=== PATIENT | female | born 1955 | race Caucasian/White ===

== ENCOUNTER 2023-01-19 19:29 | Inpatient (IN) | payer MEDICARE, OTHER ==
[~2023-01-19] VITALS: Ht 162.6 cm; Wt 162.5 kg
[2023-01-19 20:04] LABS: BASOPHILS ABSOLUTE AUTO 0.01 K/mm3 (0.00-0.23); BASOPHILS PERCENT AUTO 0 % (0-2); EOSINOPHILS ABSOLUTE AUTO 0.09 K/mm3 (0.00-0.68); EOSINOPHILS PERCENT AUTO 2 % (0-6); Hematocrit 38.5 % (33.0-51.0); Hemoglobin 12.8 g/dL (11.5-16.0); IMMATURE GRAN ABSOLUTE AUTO 0.01 K/mm3 (0.00-0.10); IMMATURE GRAN PERCENT AUTO 0 % (0-1); LYMPHOCYTES ABSOLUTE AUTO 1.52 K/mm3 (0.84-5.20); LYMPHOCYTES PERCENT AUTO 32 % (21-46); MONOCYTES ABSOLUTE AUTO 0.27 K/mm3 (0.16-1.47); MONOCYTES PERCENT AUTO 6 % (4-13); Mean Corpuscular HGB 33.2 pg (26.0-34.0); Mean Corpuscular HGB Conc 33.2 g/dL (31.5-36.5); Mean Corpuscular Volume 100 fL (80-100); Mean Platelet Volume 10.3 fL (9.1-12.4); NEUTROPHILS ABSOLUTE AUTO 2.83 K/mm3 (1.96-9.15); NEUTROPHILS PERCENT AUTO 60 % (41-73); Platelet Count 201 K/mm3 (150-400); RDW Coefficient Variation 13.3 % (11.7-14.2); RDW Standard Deviation 48.7 fL (35.1-46.3); Red Blood Cell Count 3.86 M/mm3 (3.80-5.20); White Blood Cell Count 4.73 K/mm3 (4.00-11.30)
[2023-01-19 20:28] LABS: Albumin, Blood 3.4 g/dL (3.4-5.0); Albumin/Globulin Ratio 0.9 (0.8-1.8); Bilirubin, Total 0.8 mg/dL (0.1-1.0); Calcium, Blood 9.2 mg/dL (8.5-10.1); Globulin, Blood 3.6 g/dL (2.2-4.0); Potassium, Blood 4.1 mmol/L (3.5-5.5)
[2023-01-19 21:13] LABS: Magnesium, Blood 1.9 mg/dL (1.6-2.4)
[2023-01-20] VITALS (9 sets, daily range): BP systolic 105–140; BP diastolic 61–101
[2023-01-20] MEDS ORDERED: METO100ER PO (00:25)
[2023-01-20] MEDS ORDERED: XARELTO20 MG PO (00:25)
[2023-01-20] MEDS ORDERED: LOSA50 PO (00:27)
--- NOTE | 2023-01-20 01:12 | NUR ---
RECEIVED REPORT FROM CARMELA BESS IN ED. PT ABLE TO STAND AND PIVOT TO BED FROM [facility]. REPORTS BEING WC BOUND AT HOME. SISTER AMBAR ATTENDING PT TO ROOM. PT A&OX4. ABLE OT FOLLOE DIRECTIONS AND MAKE NEEDS KNOWN. DENIES ANY SOB OR CHEST PAIN AT THIS TIME. DILT GTT INFUSING AT 5 MG/HR DUE TO HR UP INTO 130'S AT TIME, SUSTAINING IN 110'S. O2 SATS > 92% ON RA. ORIENTED TO ROOM AND CALL LIGHT. PUREWICK IN PLACE FOR PT COMFORT. DENIES NEEDS AT THIS TIME.
--- NOTE | 2023-01-20 03:19 | NUR ---
PT STANDING AND PIVOT TO BSC WITH MINIMAL ASSIST TO VOID. HR ELEVATED TO 130'S WHEN UP, DECREASES TO 110'S AFTER RETURNING TO BED. CALL LIGHT IN REACH.
[2023-01-20 04:28] LABS: BASOPHILS ABSOLUTE AUTO 0.01 K/mm3 (0.00-0.23); BASOPHILS PERCENT AUTO 0 % (0-2); EOSINOPHILS PERCENT AUTO 2 % (0-6); Hematocrit 36.5 % (33.0-51.0); Hemoglobin 12.2 g/dL (11.5-16.0); IMMATURE GRAN ABSOLUTE AUTO 0.02 K/mm3 (0.00-0.10); IMMATURE GRAN PERCENT AUTO 0 % (0-1); LYMPHOCYTES ABSOLUTE AUTO 1.42 K/mm3 (0.84-5.20); LYMPHOCYTES PERCENT AUTO 30 % (21-46); MONOCYTES ABSOLUTE AUTO 0.36 K/mm3 (0.16-1.47); MONOCYTES PERCENT AUTO 8 % (4-13); Mean Corpuscular HGB 33.4 pg (26.0-34.0); Mean Corpuscular HGB Conc 33.4 g/dL (31.5-36.5); Mean Corpuscular Volume 100 fL (80-100); Mean Platelet Volume 10.4 fL (9.1-12.4); NEUTROPHILS ABSOLUTE AUTO 2.85 K/mm3 (1.96-9.15); NEUTROPHILS PERCENT AUTO 60 % (41-73); Platelet Count 186 K/mm3 (150-400); RDW Coefficient Variation 13.2 % (11.7-14.2); RDW Standard Deviation 48.6 fL (35.1-46.3); Red Blood Cell Count 3.65 M/mm3 (3.80-5.20); White Blood Cell Count 4.76 K/mm3 (4.00-11.30)
[2023-01-20 05:03] LABS: Albumin, Blood 3.4 g/dL (3.4-5.0); Bilirubin, Total 1.4 mg/dL (0.1-1.0); Bun/Creatinine Ratio 10.8 (12.0-20.0); Calcium, Blood 9.2 mg/dL (8.5-10.1); Creatinine, Blood 1.02 mg/dL (0.40-1.00); Globulin, Blood 3.3 g/dL (2.2-4.0); Potassium, Blood 3.6 mmol/L (3.5-5.5); Thyroid Stimulating Hormone 8.42 uIU/mL (0.360-4.800); Total Protein, Blood 6.7 g/dL (6.4-8.2)
--- NOTE | 2023-01-20 06:02 | NUR ---
HR CONTINUES IN THE LOW 100'S-110'S WHEN AT REST, INCREASED TO 150'S WHEN AMBULATING. DILT GTT INFUSING AT 10MG/HR. CONTINUES TO DENY ANY CHEST PAIN/PRESSURE. VOIDING LARGE AMOUNTS OF CLEAR, YELLOW URINE. CALL LIGHT IN REACH.
--- NOTE | 2023-01-20 14:29 | NUR ---
ASSUMED CARE OF PT AT 0700 THIS AM. CARDIZEM GTT DC'D PER MD ORDERS AND METOPROLOL PUSH X 1 GIVEN FOR HR>120. PT APPEARS TO BE SLEEPING DEEPLY IN THE AFTERNOON AND SPO2 IS NOTED TO DROP INTO THE 70s BRIEFLY AND PERIODICALLY IN CONJUNCTION WITH AN ELEVATED HR 130-140s FOR A FEW SECONDS. PT APPEARS TO HAVE PERIODS OF APNEA WHILE SLEEPING THAT CORRESPOND TO THESE EVENTS. PT STATES SHE HAS NEVER BEEN DIAGNOSED W SLEEP APEA. PT PLACED ON 2L O2 WHILE SLEEPING TO MAINTAIN SPO2. CALL LIGHT IN REACH, WILL CONTINUE TO MONITOR.
--- NOTE | 2023-01-20 15:27 | NUR ---
DR ROBERSON NOTIFIED OF PT'S HR CONTINUING TO BE 120-140s WHILE AWAKE AND SUSPECTED SLEEP APNEA. YNES ROBERSON STATES SHE WILL PLACE ORDERS. WILL CONTINUE TO MONITOR.
--- NOTE | 2023-01-20 17:53 | NUR ---
SHIFT SUMMARY METOPROLOL SUCC CHANGED TO TARTRATE FOR BETTER RATE CONTROL BY DR ROBERSON, FIRST DOSE GIVEN THIS EVENING ORDERED. CARDIZEM GTT REMAINS OFF AND HR CONTINUES TO BE 120-130s POST METOPROLOL DOSE. SEE DOCUMENTED VS AND ASSESSMENT. NO OTHER ACUTE CHANGES. PT STATES HER BREATHING CONTINUES TO IMPROVE. PT IS ABLE TO USE CALL LIGHT FOR NEEDS, CALL LIGHT IN REACH, WILL CONTINUE TO MONITOR AND GIVE REPORT TO NOC SHIFT RN.
[2023-01-21] VITALS (23 sets, daily range): BP systolic 91–138; BP diastolic 44–106
[2023-01-21 00:58] LABS: Albumin, Blood 3.4 g/dL (3.4-5.0); Anion Gap 7 mmol/L (6-16); Blood Urea Nitrogen 14 mg/dL (8-24); Bun/Creatinine Ratio 12.5 (12.0-20.0); CO2, Blood 35 mmol/L (21-32); Calcium, Blood 9.3 mg/dL (8.5-10.1); Chloride, Blood 99 mmol/L (98-108); Creatinine, Blood 1.12 mg/dL (0.40-1.00); Glomerular Filtration Rate 54 (60-); Glucose, Blood 102 mg/dL (70-99); Phosphorus, Blood 5.5 mg/dL (2.5-4.9); Potassium, Blood 3.5 mmol/L (3.5-5.5); Sodium, Blood 141 mmol/L (136-145)
--- NOTE | 2023-01-21 05:31 | NUR ---
SHIFT SUMMARY PT A&Ox4, CALLS AND COMMUNCIATES NEEDS APPROPRIATLEY. BP STABLE, AFIB 100-130's, MEDICATED PER EMAR, DENIES CP/PRESSURE. SpO2> 92% 2L VIA NC, DENIES SOB. PT REPORTS INCONTINENCE AT TIMES, REQUESTED PUREWICK TO BE PLACED. PT 1 PERSON-SBA TO BSC FOR BMs, NO BM THIS SHIFT, DENIED BOWEL CARE. NO OTHER EVENTS, WILL REPORT TO ONCOMING RN.
--- NOTE | 2023-01-21 12:51 | NUR ---
pt update PT A&OX4. SP02>90% ON RA. TELE AFIB, HR CURRENTLY 140'S. PURWIK TO LIS W/ CLEAR YELLOW URINE. PT AMBULATING TO BATHROOM W/ SBA AND FWW/GB. DENIES PAIN. FRIEND IN ROOM THIS MORNING TO VISIT. MD HENDRICKS IN ROOM TO ASSESS PT, CONSULTED MD BRAVO FOR AFIB RVR, HR 140'S. MD BRAVO IN ROOM TO ASSESS PT. MD BRAVO W/ ORDERS FOR SOTALOL AND DIGOXIN, SEE EMAR. MD BRAVO W/ ORDERS FOR CARDIOVERT THIS EVENING IF NEEDED, PLACED PT ON NPO STATUS. MD BRAVO ALSO W/ ORDERS FOR CORVERT. PT NEEDING TO XFER TO ICU TO BE GIVEN CORVERT PER HOSPITAL POLICY. WILL GIVE REPORT TO CONTRACTS MANAGER.
--- NOTE | 2023-01-21 14:09 | NUR ---
PT IS STARTED ON IBUTILIDE, 1 VIAL OVER 10 MINUTES. PT IS TOLERATING WELL. VSS.
--- NOTE | 2023-01-21 16:12 | NUR ---
BRANDON IS STARTING TO HAVE MORE FREQUENT RUNS OF V-TACH, C/O "NOT FEELING WELL" BUT IT ISN'T NAUSEATED. CALL TO WITH UPDATE, ORDERS RECEIVED, HOLD DIG FOR NOW, EKG TRYING TO CAPTURE THE "RUNS OF VTACH". PT LOOKS MORE TIRED, NOT JOVIAL AND ENGAGING.
--- NOTE | 2023-01-21 17:05 | NUR ---
PT SITTING IN BED AFTER BEING UP TO THE C AND BACK TO BED, WATCHING MONITOR AND PT CONVERTS TO SINUS BRADYCARDIA. UPON ASSESSMENT, PT STATES THAT SHE FEELS "GOOD". PT STATES HER NORMAL RATE IS IN THE 60S. SHE CONTINUES TO HAVE ABERRANT BEATS. HER RATE IS CONTINUING TO RUN BELOW 56.
--- NOTE | 2023-01-21 17:45 | NUR ---
BRANDON WAS TALKING TO THIS RN AND THE MAGNESIUM PB WAS BEING INITIATED, THAT WAS ORDERED BY . PT HAD JUST CONVERTED TO SINUS SAMUEL ABOUT 1650. IT WAS NOTED THAT PT WAS IN VTACH/VFIB. PADS WERE PLACED AND AND DR. SIMMONS CAME IN THE ROOM. PT WAS THEN NOTED TO BE IN TORSADES DE POINT, RATE 245 MAGNESIUM PUSH GIVEN BY ORDER OF AT 1725 AND THE IVPB WAS INCREASED TO 100ML/HR. PT WAS VERY TOLERANT THROUGHOUT THESE EPISODES, SHE WAS AWARE ALMOST THE ENTIRE TIME, TOTAL EPISODES IN TORSADES WAS 3. PT LOST CONSCIOUSNESS ONLY FOR A BRIEF FEW SECONDS, OTHERWISE WAS DOING TOLD WITH TAKING DEEP BREATHS AND ATTEMPTING TO BEAR DOWN. SHE HAD SOME PANIC EPISODES DURING, WHICH WAS EXPECTED. SHE IS CURRENTLY "CHATTING WITH STAFF" AND WAS JUST VISITED BY .
--- NOTE | 2023-01-21 18:39 | NUR ---
END OF SHIFT SUMMARY: NEURO: A&OX4. PATIENT IS ABLE TO MOVE ALL EXTREMITIES AND REPOSITION SELF IN BED. PERRLA. RESP: LUNG SOUNDS CLEAR THROUGHOUT. PT PUT ON 2L NC AROUND 1800 AFTER CARDIAC EPISODE. MAINTAINING AN O2 SAT AT 99% CARDIAC: PT HAS BEEN HAVING SEVERAL RUNS OF VTACH THROUGHOUT THE SHIFT. AROUND 1700 PT BECAME BRADICARDIC AND THE HAD A LONG RUN OF VTACH. CRASH CART WAS BROUGHT INTO THE ROOM AND HOOKED UP TO THE ZOLL. PT CAME OUT OF VTACH ON HER OWN. THIS SAME EPISODE HAPPENED 3 MORE TIMES. PT REMAINED BRADYCARDIC. WAS AT [facility] AND GAVE ORDERS. PT WAS AWAKE AND AWARE OF WHAT WAS GOING ON DURING WHOLE EVENT. PT HAS SINCE BEEN HAVING ECTOPY AND GOING IN AND OUT OF SEVERAL DIFFERENT RHYTHMS. GI: NO BM TODAY : PT IS HOOKED UP TO [email or web address]. SKIN: NO NEW SKIN BREAKDOWN. LINES: 20G IV RFA, 20G IV RAC
--- NOTE | 2023-01-21 20:00 | NUR ---
ASSUMPTION OF CARE NOTE PT RESTING COMFORTABLY AT BEGINNING OF SHIFT. STATES SHE IS VERY TIRED AFTER AN EXHAUSTING DAY. PER REPORT, SEVERAL RATE/RYTHM CHANGES THROUGHOUT THE DAY AND IS CURRENTLY ON A MAG GTT D/T TORSADES RYTHM EARLIER. CURRENTLY SINUS SAMUEL. ON 2L NC. A&OX4, FOLLOWING COMMANDS APPROPRIATELY. PUREWICK IN PLACE AND TO SUCTION. NO COMPLAINTS OF PAIN.
[2023-01-22] VITALS (34 sets, daily range): BP systolic 99–131; BP diastolic 51–100
--- NOTE | 2023-01-22 06:39 | NUR ---
SHIFT SUMMARY NO ACUTE CHANGES OVERNIGHT. PT REMAINED IN SINUS SAMUEL. REMAINED ON 2L NC. ALL OTHER VSS. PER DR BRAVO, DISCUSSION TO BE HAD AROUND STATUS CHANGE TODAY. REPEAT 12 LEAD EKG DONE THIS AM.
--- NOTE | 2023-01-22 07:16 | NUR ---
ASSUMED CARE OF PATIENT.
[2023-01-22] MEDS ORDERED: FURO20 PO (12:03)
[2023-01-22] MEDS ORDERED: METO50ER PO (12:04)
[2023-01-22] MEDS ORDERED: LOSA25 PO (12:04)
--- NOTE | 2023-01-22 13:52 | NUR ---
PHYSICAL THERAPY WORKED WITH BRANDON AND SHE WAS ABLE TO MOVE ABOUT WELL AND WAS VERY RECEPTIVE TO THE TOOLS PROVIDED HER BY [employer]. SHE IS GETTING DRESSED, AND WILL BE DISCHARGED VIA WHEELCHAIR TO CARE OF BROTHER IN LAW. NO ECTOPY SEEN TODAY, BP HAS BEEN STABLE.
--- NOTE | 2023-01-22 14:38 | NUR ---
DISCHARGE [facility]: WENT OVER DISCHARGE INFORMATION WITH PT AND ANSWERED ANY QUESTIONS OR CONCERNS. LINES WERE PULLED AND LAST SET OF VITAL SIGNS WERE COLLECTED. PTS BROTHER IN LAW TO CARPENTER/LABOR PT. THIS SN ASSISTED PT TO THE CAR VIA WHEEL CHAIR.
== END 2023-01-22 14:30 | disposition home or self-care (01) | DRG 291 ==
LOC: ER 19:29 → PCU 19:30 → ICUW 01-21 13:25
PROVIDERS: Family Medicine; Internal Medicine; Student in an Organized Health Care Education/Training Program; ADMIT Internal Medicine
DX: I11.0 Hypertensive heart disease with heart failure (principal); I50.31 Acute diastolic (congestive) heart failure; I48.20 Chronic atrial fibrillation, unspecified; I48.0 Paroxysmal atrial fibrillation; E66.01 Morbid (severe) obesity due to excess calories; L40.9 Psoriasis, unspecified; E78.5 Hyperlipidemia, unspecified; E03.8 Other specified hypothyroidism; R00.0 Tachycardia, unspecified; I50.810 Right heart failure, unspecified; E83.42 Hypomagnesemia; J30.9 Allergic rhinitis, unspecified; G47.33 Obstructive sleep apnea (adult) (pediatric); M17.0 Bilateral primary osteoarthritis of knee; L55.9 Sunburn, unspecified; Z90.710 Acquired absence of both cervix and uterus; Z90.49 Acquired absence of other specified parts of digestive tract; Z86.19 Personal history of other infectious and parasitic diseases; Z85.42 Personal history of malignant neoplasm of other parts of uterus; Z79.01 Long term (current) use of anticoagulants; Z79.899 Other long term (current) drug therapy
CPT/HCPCS: 36415; 71046; 80053; 80069; 83735; 83880; 84439; 84443; 84484; 85025; 93005; 93010; 96365; 96375; 96376; 97162; 97530; 99285-25; A9270; C8929; G0378; J1160; J1742; J1940; J2405; J3475; J7050; Q9957

== ENCOUNTER 2023-02-25 02:20 | Emergency (ER) | payer MEDICARE, OTHER ==
[~2023-02-25] VITALS: Ht 162.6 cm; Wt 160.6 kg
[~2023-02-25 02:20] MED LIST: FURO20 PO; LOSA25 PO; LOSA50 PO; METO100ER PO; METO50ER PO; XARELTO20 MG PO
[2023-02-25 03:23] LABS: BASOPHILS ABSOLUTE AUTO 0.01 K/mm3 (0.00-0.23); BASOPHILS PERCENT AUTO 0 % (0-2); EOSINOPHILS ABSOLUTE AUTO 0.09 K/mm3 (0.00-0.68); EOSINOPHILS PERCENT AUTO 2 % (0-6); Hematocrit 37.9 % (33.0-51.0); Hemoglobin 13.3 g/dL (11.5-16.0); IMMATURE GRAN ABSOLUTE AUTO 0.02 K/mm3 (0.00-0.10); IMMATURE GRAN PERCENT AUTO 0 % (0-1); LYMPHOCYTES PERCENT AUTO 30 % (21-46); MONOCYTES ABSOLUTE AUTO 0.33 K/mm3 (0.16-1.47); MONOCYTES PERCENT AUTO 6 % (4-13); Mean Corpuscular HGB 33.2 pg (26.0-34.0); Mean Corpuscular HGB Conc 35.1 g/dL (31.5-36.5); Mean Corpuscular Volume 95 fL (80-100); Mean Platelet Volume 9.8 fL (9.1-12.4); NEUTROPHILS ABSOLUTE AUTO 3.28 K/mm3 (1.96-9.15); NEUTROPHILS PERCENT AUTO 62 % (41-73); Platelet Count 187 K/mm3 (150-400); RDW Coefficient Variation 13.2 % (11.7-14.2); RDW Standard Deviation 45.4 fL (35.1-46.3); Red Blood Cell Count 4.01 M/mm3 (3.80-5.20); White Blood Cell Count 5.33 K/mm3 (4.00-11.30)
[2023-02-25 03:34] LABS: Albumin, Blood 3.3 g/dL (3.4-5.0); Albumin/Globulin Ratio 0.9 (0.8-1.8); Bilirubin, Total 0.3 mg/dL (0.1-1.0); Bun/Creatinine Ratio 11.6 (12.0-20.0); Calcium, Blood 8.8 mg/dL (8.5-10.1); Creatinine, Blood 1.46 mg/dL (0.40-1.00); Globulin, Blood 3.5 g/dL (2.2-4.0); Potassium, Blood 3.6 mmol/L (3.5-5.5); Total Protein, Blood 6.8 g/dL (6.4-8.2)
[2023-02-25 04:23] LABS: Magnesium, Blood 1.7 mg/dL (1.6-2.4)
[2023-02-25 05:15] VITALS: BP 128/84
== END 2023-02-25 05:22 | disposition home or self-care (01) ==
LOC: ER 02:20
PROVIDERS: Student in an Organized Health Care Education/Training Program
DX: R00.2 Palpitations (principal); I48.91 Unspecified atrial fibrillation; R42 Dizziness and giddiness; Z79.02 Long term (current) use of antithrombotics/antiplatelets
CPT/HCPCS: 80053; 83735; 85025; 93005; 93010; 99285-25; A9270

== ENCOUNTER 2023-08-13 09:02 | Day surgery (SDC) | payer MEDICARE, OTHER ==
[~2023-08-13] VITALS: Ht 162.6 cm; Wt 166.0 kg
[~2023-08-13 09:02] MED LIST changes: +CLOBETASOL EMOL15 G1 TOP; +Triamcinolone A15 G3 TOP
[2023-08-13 11:14] VITALS: BP 135/90
== END 2023-08-13 11:35 | disposition home or self-care (01) ==
LOC: ORSCSDS 09:02
PROVIDERS: Ophthalmology
PROC: 08RJ3JZ Replacement of Right Lens with Synthetic Substitute, Percutaneous Approach (ICD-10-PCS; principal; 2023-08-13 10:30)
DX: H25.11 Age-related nuclear cataract, right eye (principal); I10 Essential (primary) hypertension; I48.0 Paroxysmal atrial fibrillation; I50.9 Heart failure, unspecified; G47.33 Obstructive sleep apnea (adult) (pediatric); E66.01 Morbid (severe) obesity due to excess calories; Z68.44 Body mass index [BMI] 60.0-69.9, adult; Z79.899 Other long term (current) drug therapy
CPT/HCPCS: J2250; J3010; J3301; J7040; V2632

== ENCOUNTER → 2024-11-15 | Outpatient (CLI) | payer MEDICARE ==
[2024-11-17 15:04] LABS: Stool Occult Bld Immuno 1 Negative (NEGATIVE)
== END | disposition home or self-care (01) ==
LOC: LAB 13:40 → LAB SHORT 13:40
PROVIDERS: Family Medicine
DX: Z12.11 Encounter for screening for malignant neoplasm of colon (principal)
CPT/HCPCS: G0328